=== PATIENT | male | born 1975 | race Caucasian/White ===

== ENCOUNTER 2022-07-29 16:28 | Outpatient (CLI) | payer BC, SELFPAY ==
[2022-07-29 22:20] LABS: Albumin* 4.3 g/dL (3.3-5.0); Chloride* 99 mmol/L (96-114); Potassium* 3.5 mmol/L (3.6-5.1); Sodium* 142 mmol/L (135-149)
[2022-07-29 22:22] LABS: Creatinine* 0.9 mg/dL (0.5-1.5); Estimated Glomerular Filt Rate 105 ml/min
[2022-07-29 22:23] LABS: Alanine Aminotransferase* 26 U/L (4-50); Alkaline Phosphatase* 77 U/L (40-150); Aspartate Amino Transferase* 24 U/L (12-35); Blood Urea Nitrogen* 19 mg/dL (5-24); Calcium* 9.6 mg/dL (8.4-10.6); Carbon Dioxide* 33 mmol/L (20-32); Glucose* 309 mg/dL (60-115); Total Protein* 7.5 g/dL (6.0-8.3)
[2022-07-29 23:14] LABS: Vitamin B12* 595 pg/mL (243-894)
[2022-07-30 00:14] LABS: Creatinine Urine 336.7 mg/dL
[2022-07-30 00:42] LABS: Microalbumin Creatinine Ratio 100 mg/g (0-30); Microalbumin Urine 34 mg/dL
== END 2022-07-29 16:29 | disposition home or self-care (01) ==
PROVIDERS: PCP Physician Assistant Medical; Visit Provider Physician Assistant Medical
DX: E11.9 Type 2 diabetes mellitus without complications (principal); I10 Essential (primary) hypertension
CPT/HCPCS: 80053; 82043; 82570; 82607